=== PATIENT | male | born 1950 | race Two or more races ===

== ENCOUNTER 2016-09-30 12:14 | Emergency (ER) | payer MEDICARE ==
[~2016-09-30] VITALS: Ht 172.7 cm; Wt 80.0 kg
[~2016-09-30 12:14] MED LIST: FLAGYL PO
== END 2016-09-30 13:21 | disposition home or self-care (01) ==
LOC: CED 12:14 → CFTX 12:14
DX: B02.9 Zoster without complications (principal)
CPT/HCPCS: 99283

== ENCOUNTER 2016-10-04 11:41 | Inpatient (IN) | payer MEDICARE ==
[~2016-10-04] VITALS: Ht 182.9 cm; Wt 80.0 kg
--- NOTE | ~2016-10-04 | CR127 ---
[facility] A Service of [facility] & [facility] RADIOLOGY TEXT RESULTS PATIENT: TASHA SHARMA LOCATION: [facility] : 48 UNIT #: [id number] AGE: [address]: Pema Judd MD SEX: M ORDER DR: [id number] [place] [id number] [facility]. [place], [place] [address] [id number] MR#: [id number] Acc #: [id number] NAME: TASHA SHARMA. : 1950 SEX: M STUDY DATE/TIME: 10/04/2016 13:07 UNIT: [facility] ROOM: STUDY DESCRIPTION: CR Foot Complete Min 3 View Rt Attending Physician: Milady Jarquin P.A.-C. Ordering Physician: Milady Jarquin P.A.-C. Primary Care Physician: No Primary Care Physician MEDICAL IMAGING REPORT This report is preliminary unless electronic signature is present EXAM Three views right foot. INDICATION Right foot pain located in the medial calcaneus as well as redness and itching for 1 month. FINDINGS No acute fracture or subluxation of the right foot is identified. I do think the patient has some soft tissue swelling overlying the plantar aspect of the calcaneus. Correlation with physical exam findings in this area is suggested. I do not see any underlying osseous abnormality to suggest osteomyelitis. IMPRESSION I do think there may be some soft tissue swelling overlying the plantar aspect of the calcaneus. Correlation with physical exam findings is recommended. It certainly could reflect cellulitis in the appropriate clinical setting. No underlying cortical abnormality is seen to suggest osteomyelitis although certainly MRI would be more sensitive. No radiopaque retained foreign body is seen. Dictated by... Zakia Dimas M.D. THIS IS AN ELECTRONICALLY VERIFIED REPORT Zakia Dimas M.D. at 10/04/2016 4:56 PM AFF/tmw TD: 10/04/2016 16:46 JOB #: [id number] [facility] A Service of [facility] & [facility] RADIOLOGY TEXT RESULTS PATIENT: TASHA SHARMA [facility] [id number] : 48 UNIT #: [id number] AGE: [address]: Pema Judd MD SEX: M ORDER DR: MEDICAL IMAGING REPORT Page 1 of 1 COPY
--- NOTE | ~2016-10-04 | DS ---
Unit #: [id number] #: [id number] Patient: TASHA SHARMA [id number] [address] [place], [place] [address] [id number] Jonna MR#: [id number] NAME: TASHA SHARMA. ROOM: 471 Age: 66 Sex: M Admission Date: 10/04/2016 : 1950 Discharge Date: 10/06/2016 Attending Physician: Marylou Moss M.D. Primary Care Physician: Cristopher Reyes M.D. DISCHARGE SUMMARY FINAL DIAGNOSIS Right heel cellulitis. SECONDARY DIAGNOSIS Tobaccoism. CONSULTS Podiatry. HOSPITAL COURSE This is a 66-year-old male who presented with right heel cellulitis. He had an MRI done, which showed no osteo but showed possible (1) abscess. He had I and D by the bedside by podiatry. He was started on IV vancomycin. His cultures came back preliminary for Staphylococcus aureus. Culture and sensitivity is pending at this time; however, he seems to have improved clinically with vancomycin IV. He has been afebrile. He is evaluated, suitable and stable for discharge. I will discharge him home on clindamycin 300 mg p.o. t.i.d. for the next 7 days. He will be evaluated by podiatry prior to discharge. I will send him home on some hydrocodone 5/325 p.o. t.i.d. p.r.n. MEDICATIONS ON DISCHARGE 1. Clindamycin 300 mg p.o. t.i.d. 2. [place] 5/325 mg 1 tablet p.o. t.i.d. p.r.n. (#10). DISCHARGE PLAN 1. Will discharge him home with home health. 2. He will follow up with his PCP in the next 3-5 days. NOTE: Time spent coordinating discharge was about 26 minutes. Dictated by... Saira Rene/damaris TD: 10/06/2016 13:18 JOB #: [id number] Unit #: [id number] #: [id number] Patient: TASHA SHARMA DISCHARGE SUMMARY Page 1 of 1 X Marylou Moss MD DISCHARGE SUMMARY
--- NOTE | ~2016-10-04 | HP ---
Unit #: [id number] #: [id number] Patient: TASHA SHARMA [id number] [address] [place], [place] [address] [id number] I MR#: [id number] NAME: TASHA SHARMA ROOM: 47 Age: 66 Sex: M Admission Date: 10/04/2016 : 1950 Attending Physician: Pema Judd M.D. Primary Care Physician: No Primary Care Physician HISTORY AND PHYSICAL CHIEF COMPLAINT Right foot. HISTORY OF PRESENT ILLNESS The patient is a 66-year-old male with no significant past medical history, who presented to the emergency department for evaluation of the above. History is obtained via parimutuel ticket cashier #[phone] due to the patient being Italian speaking only. The patient states that he noticed a rash involving the right foot for the past month. He states that it has been somewhat itchy. Within the past couple of days he noticed increased pain in his heel as well as increased redness. He presented to the emergency department on September 30, 2016. At that time he was diagnosed with shingles and placed on what sounds like acyclovir. The wound did not get any better. He came today for further evaluation. In the emergency department today temperature was 97.7, pulse 105. X-ray shows soft tissue swelling. The plantar surface of the right foot in the region of the heel demonstrated a callus that was unroofed by the emergency department with return of pus. He was given vancomycin. He is being admitted to [facility] for evaluation and further treatment. PAST MEDICAL HISTORY The patient denies hospitalizations. He denies any medical issues. PAST SURGICAL HISTORY None. 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 He states that he smokes three to four cigarettes a week. He denies alcohol use. FAMILY HISTORY Family history is notable for his mother being alive and 87 years old. She is healthy. His dad had a history of heavy alcohol use. ALLERGIES None. HOME MEDICATIONS None. Unit #: [id number] #: [id number] Patient: TASHA SHARMA REVIEW OF SYSTEMS A complete review of systems is negative except as indicated in the HPI. DIAGNOSTIC STUDIES IMAGING: Right foot x-ray shows soft tissue swelling but no plain film evidence of osteomyelitis LABORATORY: Complete blood count is essentially normal. Basic metabolic panel is normal. PHYSICAL EXAMINATION VITAL SIGNS: Temperature is 97.7. Pulse 105. Respirations 16. Blood pressure 158/92. Oxygen saturation 100% on room air. GENERAL: The patient is a very pleasant male who is awake and alert, in no acute distress. HEENT: The head is atraumatic. Mucous membranes are moist. NECK: Neck is supple. Trachea is midline. CARDIOVASCULAR: Regular rate and rhythm. LUNGS: Lungs are clear to auscultation bilaterally with no increased work of breathing. ABDOMEN: Abdomen is soft, nontender, with bowel sounds present all four quadrants. EXTREMITIES: There is no pedal edema. NEUROLOGIC: The patient is awake and alert. He follows commands. PSYCHIATRIC: Mood and affect are normal. The patient is cooperative. SKIN: The plantar aspect of the right foot in the region of the calcaneus demonstrates a 1 cm area consistent with unroofed callus. Palpation of this area does express purulent material with associated streaking of the foot. ASSESSMENT The patient is a 66-year-old male with: 1. Right heel abscess/cellulitis, status post unroofing in the emergency department. The patient received vancomycin in the emergency department. 2. Tobacco abuse. PLAN 1. Admit to med/surg. 2. Regular diet. 3. N.p.o. after midnight for possible surgical intervention. 4. Normal saline at 75 mL an hour. 5. Blood cultures x2. 6. Wound culture and sensitivity. 7. Vancomycin IV with pharmacy to dose. 8. Consult podiatry regarding heel abscess/cellulitis. 9. P.r.n. morphine. 10. P.r.n. Zofran. 11. P.r.n. Tylenol. 12. SCDs. 13. Repeat labs in the morning. 14. Additional work up and consultants based on above. Dictated by Unit #: [id number] #: [id number] Patient: TASHA SHARMA M.D. AW/oh TD: 10/04/2016 23:16 JOB #: [id number] HISTORY AND PHYSICAL Page 1 of 1 X Pema Judd MD X HISTORY AND PHYSICAL
--- NOTE | ~2016-10-04 | CO ---
Unit #: [id number] #: [id number] Patient: TASHA SHARMA [id number] [address] [place], [place] [address] [id number] I MR#: [id number] NAME: TASHA SHARMA. ROOM: 471 Age: 66 Sex: M Admission Date: 10/04/2016 : 1950 Attending Physician: Marylou Moss M.D. Consultation Date: 10/04/2016 CONSULTATION REPORT REQUESTING SERVICE Medicine. CONSULTING SERVICE Podiatry. REASON FOR CONSULTATION Right foot wound. CHIEF COMPLAINT Right foot pain. HISTORY OF PRESENT ILLNESS Mr. Sharma is a 66-year-old Haitian-speaking male. He presents to the [facility] Emergency Department this past Friday, complaining of right heel pain and itching. The patient was found with a bedside debridement to have a superficial pocket of drainage that was expressed as well as the thought of having shingles. He was sent home on antiviral and pain medications. However, the patient explains that the pain, redness, and swelling continued to get worse, so he presented back to the emergency department today, where he was admitted by the hospitalist for continued workup, at which time, Podiatry was consulted. PAST MEDICAL HISTORY Denied. MEDICATIONS Denied. ALLERGIES No known drug allergies. SOCIAL HISTORY Half pack-a-day smoker. FAMILY HISTORY Denied. PAST SURGICAL HISTORY Denied. REVIEW OF SYSTEMS A 14-point review of systems, all negative except for the systems Unit #: [id number] #: [id number] Patient: TASHA SHARMA mentioned in the HPI. LABORATORY DATA White count 9.1, hemoglobin 15.6, hematocrit 45.0, and platelets 185. Blood cultures and wound cultures pending. PHYSICAL EXAMINATION VITAL SIGNS: Afebrile and vital signs are stable. GENERAL: No acute distress. Alert, awake, and oriented x3. EXTREMITIES: Right lower extremity focus; derm, skin is warm, supple, hydrated. Annular lesion noted to the medial aspect of the right heel, where there is central pinpoint purulent drainage with expression and significant tenderness as well. There is an underlying swelling as well as bogginess to the wound. There is erythema surrounding the wound and extending proximal. No malodor is noted at this time. VASCULAR: DP and PT pulses are palpable with brisk cap refill time to all digits. NEUROLOGIC: Sensation is intact to light touch. MUSCULOSKELETAL: Muscle strength is 5/5 in all quadrants. Compartments are warm, supple, and compressible. The patient has significant tenderness to palpation over that medial heel. DIAGNOSTIC STUDIES IMAGING STUDIES: X-rays show soft tissue swelling to the proximal foot and rear foot. No soft tissue emphysema seen or foreign bodies noted. No acute fractures or subluxation noted. There does do appear to have some possible enthesophyte type changes to the plantar and dorsal heel. ASSESSMENT This 66-year-old Haitian-speaking male with right heel cellulitis and possible abscess. PLAN The patient currently getting scheduled antibiotics per the primary team. He will obtain an MRI this evening with and without contrast to further workup possible abscess. From head pumper perspective, we will await the MRI to determine if further surgical intervention is needed. In the meantime, ESR and CRP labs will be ordered. Local wound care to the heel with a simple gauze and tape to collect drainage. The patient may weight-bear as tolerated on the right lower extremity as long as the wound is covered. We will discuss the patient with attending, Dr. Lassiter and continue to follow the patient while in-house. Thank you for the consult. Please page [phone] with any questions or concerns. Dictated by... Avi Eli M.D. for Estephania Toth/steven TD: 10/06/2016 04:48 JOB #: [id number] Unit #: [id number] #: [id number] Patient: TASHA SHARMA CONSULTATION REPORT Page 1 of 1 X X CONSULTATION REPORT
--- NOTE | ~2016-10-04 | MR9 ---
[facility] A Service of [facility] & [facility] RADIOLOGY TEXT RESULTS PATIENT: TASHA SHARMA LOCATION: [place] [address]- : [birth year] UNIT #: [id number] AGE: [address]: Marylou Moss MD SEX: M ORDER DR: [id number] [facility] [address] [place], [place] [address] [id number] I MR#: [id number] Acc #: [id number] NAME: TASHA SHARMA. : 1950 SEX: M STUDY DATE/TIME: 10/04/2016 21:38 UNIT: [facility] ROOM: [facility] STUDY DESCRIPTION: MR Ankle WWo Contrast Rt Attending Physician: Marylou Moss M.D. Ordering Physician: Pema Judd M.D. Primary Care Physician: Primary Care Physician No MRI CENTER REPORT This report is preliminary unless electronic signature is present. EXAM MRI right ankle hindfoot without and with IV contrast 10/04/2016. HISTORY Order states MRI right foot and ankle with and without contrast. Lack osteomyelitis. History sheet states right heel pain for 1 month with an open sore. Draining pus began today. No known injury. Area marked with a gel cap. No trauma and no related reported surgery. COMPARISON: Right foot radiographs dated 10/04/2016. FINDINGS A marker was placed in the upper posteromedial heel region where there is a shallow wound or ulceration with probable overlying dressing. The wound measures approximate 4 mm AP and potentially up to 1 cm craniocaudal. Deep to the wound is a nonenhancing 14 x 12 x 9 mm (AP x craniocaudal x transverse) nonenhancing subcutaneous space focus with a mild T2 hyperintensity without cee fluid signal. This area could reflect a small complex signal fluid collection/abscess and/or necrotic or under perfused soft tissue. There is a large zone of surrounding enhancing subcutaneous soft tissue and skin along the medial side compatible with cellulitis. There is however no evidence of underlying osteomyelitis. The tibiotalar joint is normal without evidence of septic arthritis.. No ankle ligament or tendon pathology is noted. There is no fracture. There is prominent inflammation in Kager's fat space (pre Achilles region) without enhancement. This is likely reactive and noninfectious. [facility] A Service of [facility] RADIOLOGY TEXT RESULTS PATIENT: TASHA SHARMA LOCATION: [facility] [id number] : [birth year] UNIT #: [id number] AGE: [address]: Marylou Moss MD SEX: M ORDER DR: The visualized midfoot is normal. There is a plantar fasciopathy. No tear is demonstrated. IMPRESSION 1. Posteromedial heel wound or ulceration with an underlying 14 x 12 x 9 mm nonenhancing subcutaneous space process without significant T2 hyperintensity. This could reflect a complex small developing fluid collection/abscess and/or non perfused or under perfused soft tissue. Generalized cellulitis. 2. No evidence of osteomyelitis or fracture. 3. No evidence of septic arthritis. 4. Prominent nonenhancing Kager's fat pad edema is nonspecific. Dictated by... Michelle Collins M.D. THIS IS AN ELECTRONICALLY VERIFIED REPORT Michelle Collins M.D. at 10/07/2016 1:37 PM ASUNCION/jenna TD: 10/07/2016 11:45 JOB #: [id number] MRI CENTER REPORT Page 1 of 1 COPY
--- NOTE | ~2016-10-04 | MR59 ---
[facility] A Service of [facility] & [facility] RADIOLOGY TEXT RESULTS PATIENT: TASHA SHARMA LOCATION: [place] [address]- : [birth year] UNIT #: [id number] AGE: [address]: Marylou Moss MD SEX: M ORDER DR: [id number] [facility] [address] [place], [place] [address] [id number] I MR#: [id number] Acc #: [id number] NAME: TASHA SHARMA. : 1950 SEX: M STUDY DATE/TIME: 10/04/2016 21:38 UNIT: [facility] ROOM: [facility] STUDY DESCRIPTION: MR Foot WWo Contrast Rt Attending Physician: Marylou Moss M.D. Ordering Physician: Pema Judd M.D. Primary Care Physician: No Primary Care Physician MRI CENTER REPORT This report is preliminary unless electronic signature is present. EXAM MRI of the right foot without and with contrast (mid foot), 10/04/2016. COMPARISON Right foot radiographs, 10/04/2016. HISTORY Order states MRI right foot and ankle with and without contrast rule out osteomyelitis. History sheet states right heel pain for 1 month. Open sore on heel which drained pus today. No known injury. Area marked with a marker (on ankle hindfoot study). No trauma and no related reported surgery. See separate MRI ankle hindfoot report for significant findings. FINDINGS The midfoot and visualized forefoot shows no fracture, osteomyelitis, or septic arthritis. There is moderate atrophy of the distal aspect of the abductor hallucis muscle. There is mild first MTP joint arthrosis. IMPRESSION 1. Midfoot and visualized forefoot show no evidence of abscess, osteomyelitis, or septic arthritis. 2. No acute findings. Dictated by... Michelle Collins M.D. THIS IS AN ELECTRONICALLY VERIFIED REPORT Michelle Collins M.D. at 10/07/2016 1:37 PM [facility]/bd TD: 10/07/2016 12:01 STS. [facility] A Service of [facility] & [facility] RADIOLOGY TEXT RESULTS PATIENT: TASHA SHARMA LOCATION: [place] [address] : [birth year] UNIT #: [id number] AGE: [address]: Marylou Moss MD SEX: M ORDER DR: JOB #: [id number] MRI CENTER REPORT Page 1 of 1 COPY
[2016-10-04 13:52] LABS: BASOPHIL# 0.1 X10e3 (0-0.3); BASOPHIL% 0.8 % (0-2.5); EOSINOPHIL# 0.1 X10e3 (0-0.7); HEMOGLOBIN 15.6 gm/dL (13.0-16.0); LYMPHOCYTE# 1.4 X10e3 (1.0-3.5); MEAN CELL VOLUME 89.6 FL (83-96); MEAN CORPUSCULAR HGB CONC 34.6 g/dL (30-36); MEAN PLATELET VOLUME 6.4 FL (6.5-11.5); MONOCYTE# 0.8 X10e3 (0-1.0); MONOCYTE% 8.8 % (3.0-12.0); NEUTROPHIL# 6.8 X10e3 (1.5-7.1); NEUTROPHIL% 74.4 % (40-75); PLATELET COUNT 185 X10e3 (140-420); RED BLOOD COUNT 5.02 X10e (3.90-5.60); RED CELL DISTRIBUTION WIDTH 13.4 % (11.0-15.5); WHITE BLOOD COUNT 9.1 X10e3 (4.0-10.5)
[2016-10-04 13:57] LABS: DIFF IND NO
[2016-10-04 14:27] LABS: CALCIUM SERUM 9.1 mg/dL (8.4-10.2)
[2016-10-04] MEDS ORDERED: NO MEDICATIONS (15:18)
[2016-10-05] MEDS ORDERED: TYLENOL/CODEINE1 TA1 PO (02:08)
[2016-10-05 03:41] LABS: BASOPHIL# 0.1 X10e3 (0-0.3); BASOPHIL% 0.8 % (0-2.5); EOSINOPHIL# 0.1 X10e3 (0-0.7); EOSINOPHIL% 1.1 % (0.0-7.0); HEMATOCRIT 40.4 % (38.0-50.0); HEMOGLOBIN 14.1 gm/dL (13.0-16.0); LYMPHOCYTE# 1.8 X10e3 (1.0-3.5); LYMPHOCYTE% 21.2 % (17.0-45.0); MEAN CELL VOLUME 88.4 FL (83-96); MEAN CORPUSCULAR HEMOGLOBIN 30.9 PG (28-34); MEAN CORPUSCULAR HGB CONC 34.9 g/dL (30-36); MEAN PLATELET VOLUME 6.3 FL (6.5-11.5); MONOCYTE# 0.8 X10e3 (0-1.0); MONOCYTE% 9.4 % (3.0-12.0); NEUTROPHIL# 5.6 X10e3 (1.5-7.1); NEUTROPHIL% 67.5 % (40-75); PLATELET COUNT 172 X10e3 (140-420); RED BLOOD COUNT 4.57 X10e (3.90-5.60); RED CELL DISTRIBUTION WIDTH 13.5 % (11.0-15.5); WHITE BLOOD COUNT 8.3 X10e3 (4.0-10.5)
[2016-10-05 03:50] LABS: DIFF IND NO
[2016-10-05 04:06] LABS: CALCIUM SERUM 8.9 mg/dL (8.4-10.2); POTASSIUM 4.5 mmol/L (3.5-5.1)
[2016-10-06] MEDS ORDERED: HYDROCODON-ACE1 EAC7 PO (12:06)
[2016-10-06] MEDS ORDERED: CLINDAMYCIN HC300 MG PO (12:10)
== END 2016-10-06 16:00 | disposition home or self-care (01) | DRG 603 ==
LOC: CED 11:41 → CFTX 11:41 → CED 12:56 → CFTX 12:56 → CEDOF 16:25 → CED 16:50 → CEDOF 19:56 → C4C 19:56
PROVIDERS: Family Medicine; Physician Assistant
DX: L02.611 Cutaneous abscess of right foot (principal); L03.115 Cellulitis of right lower limb; F17.210 Nicotine dependence, cigarettes, uncomplicated; B95.61 Methicillin susceptible Staphylococcus aureus infection as the cause of diseases classified elsewhere
CPT/HCPCS: 10060; 36415; 73630; 73720; 73723; 80048; 82947; 85025; 85610; 86140; 87040; 87070; 87077; 87102; 87186; 87205; 87206; 96365; 96366; 99285; A9577; J2270; J3370